=== PATIENT | male | born 1980 | race Caucasian/White ===

== ENCOUNTER 2017-06-16 12:09 | Emergency (ER) | payer SELFPAY ==
[~2017-06-16] VITALS: Ht 182.9 cm; Wt 110.0 kg
[2017-06-16 12:10] VITALS: BP 125/75; PULSE 81; RESP 14; TEMP 98.2; O2SAT 100
--- NOTE | 2017-06-16 12:27 | PD ---
HPI Chief Complaint: Pain: Acute or Chronic Time Seen by Provider: 12:23 Travel History International Travel<30 days: No Contact w/Intl Traveler<30days: No Traveled to known affect area: No History of Present Illness HPI 36-year-old male presents to the emergency department for evaluation of right medial heel pain that has been intermittent over the past 3 months. 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 Patient has not tried any over-the- counter medications. He denies any fevers or chills. No redness swelling. Denies any loss of range of motion. He states that he is ambulatory, but pain with ambulation. Reports no chronic medical problems and takes no prescribed medications. No history of IV drug use. Patient is concerned that he may have a calcaneal spur. No other complaints. [facility] Social History Alcohol Use: No (denies) Tobacco Use: No (denies) Substance Use: No (denies) Allergies-Medications (Allergen,Severity, Reaction): Coded Allergies: No Known Allergies (Unverified , 06/16/17) Reported Meds & Prescriptions Reported Meds & Active Scripts Active No Active Prescriptions or Reported Medications Review of Systems Except as stated in HPI: all other systems reviewed are Neg Physical Exam Narrative GENERAL: Well-nourished, well-developed male patient, ambulatory. Afebrile. SKIN: Focused skin assessment warm/dry. No erythema or warmth noted. No evidence of cellulitis. HEAD: Normocephalic. Atraumatic. EYES: No scleral icterus. No injection or drainage. NECK: Supple, trachea midline. No JVD or lymphadenopathy. CARDIOVASCULAR: Regular rate and rhythm without murmurs, gallops, or rubs. Right pedal pulse 2+. Capillary refill less than 2 seconds to the digits of the right foot. RESPIRATORY: Breath sounds equal bilaterally. No accessory muscle use. Lungs sounds are clear to auscultation. GASTROINTESTINAL: Abdomen soft, non-tender, nondistended. MUSCULOSKELETAL: No cyanosis, or edema. Patient has full range of motion of the right foot and right ankle. BACK: Nontender without obvious deformity. No CVA tenderness. Data Data Last Documented VS Vital Signs Date Time Temp Pulse Resp B/P Pulse Ox O2 Delivery O2 Flow Rate FiO2 06/16/17 12:21 80 18 06/16/17 12:10 98.2 125/75 100 MDM Medical Decision Making Medical Screen Exam Complete: Yes Emergency Medical Condition: Yes Medical Record Reviewed: Yes Differential Diagnosis Chronic heel pain versus calcaneal spur versus plantar fasciitis versus sprain Narrative Course 36-year-old male presents to the emergency department for evaluation of intermittent right heel pain for the past 3 months without injury. Physical exam is reassuring. I instructed the patient to take Tylenol or ibuprofen over- the-counter, follow-up with airport engineer. He is return for any acute worsening of symptoms. No emergent condition is identified on today's exam. A medical screening exam was performed: At the time of evaluation the presenting medical condition was determined not to be of an emergent nature. The patient was given the option of receiving additional care, but declined. Patient was given options for additional community resources from which to obtain care. The Patient Has Been advised to seek medical attention for their presenting complaint. The patient has been advised to return to the ER at any time if an emergent condition develops. Diagnosis Primary Impression: Encounter for medical screening examination Scripts No Active Prescriptions or Reported Meds Condition: Meghan Junior Jun 16, 2017 12:27
== END 2017-06-16 12:32 | disposition left against medical advice (07) ==
LOC: NEPD 12:09
DX: M79.671 Pain in right foot (principal)
CPT/HCPCS: 99281